=== PATIENT | female | born 1990 | race Caucasian/White ===

== ENCOUNTER 2017-02-21 23:12 | Emergency (ER) | payer OTHER | END 2017-02-22 01:27 | disposition home or self-care (01) | LOC: ER1 23:12 | DX: J02.0 Streptococcal pharyngitis (principal); J45.909 Unspecified asthma, uncomplicated; F17.210 Nicotine dependence, cigarettes, uncomplicated; Z88.0 Allergy status to penicillin | CPT/HCPCS: 87081; 87880; 99283 ==

== ENCOUNTER 2017-03-01 18:56 | Emergency (ER) | payer OTHER | END 2017-03-01 20:10 | disposition home or self-care (01) | LOC: ER1 18:56 | DX: Z53.21 Procedure and treatment not carried out due to patient leaving prior to being seen by health care provider (principal) ==

== ENCOUNTER 2017-06-17 00:43 | Emergency (ER) | payer OTHER | END 2017-06-17 01:15 | disposition left against medical advice (07) | LOC: ER1 00:43 | DX: Z53.21 Procedure and treatment not carried out due to patient leaving prior to being seen by health care provider (principal) ==

== ENCOUNTER 2017-06-17 21:37 | Emergency (ER) | payer OTHER | END 2017-06-18 00:50 | disposition home or self-care (01) | LOC: ER1 21:37 | DX: J45.909 Unspecified asthma, uncomplicated (principal); F17.210 Nicotine dependence, cigarettes, uncomplicated; Z90.49 Acquired absence of other specified parts of digestive tract; Z88.0 Allergy status to penicillin; Z88.8 Allergy status to other drugs, medicaments and biological substances | CPT/HCPCS: 71020; 84703; 99283 ==